=== PATIENT | male | born 1965 | race African-American/Black ===

== ENCOUNTER 2017-01-08 10:02 | Outpatient (CLI) ==
[2013-02-14 10:38] VITALS: TEMP 97.6
[2016-04-27 16:47] VITALS: BMI 28.2
--- NOTE | 2017-01-08 12:04 | MRI ---
EXAM: MRI lumbar spine without IV contrast. DATE: 01/08/2017. HISTORY: Low back pain. Lumbar radiculopathy. Bilateral lower extremity numbness and pain. S/P l umbar surgery in July 2016.. TECHNIQUE: Sagittal and axial T1W and T2W sequences of the lumbar spine along with sagittal IR and coronal T2W sequences were obtained using 1.2 Naa magnet. No IV contrast. COMPARISON: LS spine series 18 June 2016. MRI L-spine 28 October 2013. FINDINGS: There are four classic [id number] lumbar vertebra (L1 through L4). Pseudoarticulati on of the right L5 transverse process with the right S1 sacral ala is consistent with partial sacral ization of L5. There is no lumbar scoliosis. No acute lumbar fracture, subluxation, osseous malignancy, or pars in terarticularis defect is identified. Lumbar vertebra are normal in height. Bone marrow signal is o verall normal. A T2W/T1W bright, 10.4 mm focus in the left pedicle/body of L1 is consistent with a benign hemangioma. Mild Modic type 2 degenerate endplate changes, prominent anterolateral osteophyt es, disc desiccation, and moderate disc space narrowing are present at L3-4. Large osteophytes, min or degenerative endplate changes, disc desiccation and marked disc space narrowing are demonstrated at L4-5. There is minor disc desiccation and mild disc space narrowing at L5-S1. No sacral fractur e or stress reaction is apparent. Minor bilateral SI joint arthritis is evident. Conus medullaris terminates at T12. Visible spinal cord is normal. No retroperitoneal lymphadenopathy, paraspinal mass, or aortic aneurysm is detected. Paraspinal mus culature is symmetric bilaterally. Visible portions of the liver, spleen, adrenal glands and kidney s are limited by breathing motion artifacts, but reveal no distinct abnormality. Segmental analysis: T11-12: Normal. T12-L1: Normal. L1-2: Minimal posterior to right foraminal disc bulge and minor facet arthropathy cause minor right foraminal narrowing. No central canal stenosis. L2-3: Small concentric disc bulge, moderate right facet arthropathy, mild left facet arthropathy, m oderate ligamentum flavum hypertrophy and dorsal epidural fat cause marked central canal stenosis, m ild right foraminal stenosis, and mild/moderate left foraminal stenosis. Each L2 nerve root contact s the disc bulge near the lateral margin of the foramen. L3-4: Moderate concentric disc bulge, mild bilateral facet arthropathy, mild ligamentum flavum hype rtrophy and abundant dorsal epidural fat cause moderate/marked central canal stenosis, moderate righ t foraminal stenosis, and moderate left foraminal stenosis. Each L3 nerve root contacts the disc bu lge near the lateral margin of the foramen. L4-5: Right hemilaminectomy defect is noted. Moderate concentric disc bulge, superimposed midline to right paracentral disc protrusion (6.6 mm AP x 15 mm transverse), superimposed midline disc extru sindy (5 mm AP x 7 mm transverse x 6 mm behind the L5 superior endplate mild right facet arthropathy, moderate left facet arthropathy, and moderate ligamentum flavum hypertrophy cause severe central ca nal stenosis, marked right foraminal stenosis, and moderate left foraminal stenosis. Each L4 nerve r oot contacts the disc bulge lateral to the foramen. The disc protrusion posteriorly displaces / com presses the right S1 nerve root against the lateral recess wall. L5-S1: Small concentric disc bulge, moderate bilateral facet arthropathy, and mild ligamentum flavu m hypertrophy cause moderate central canal stenosis and mild narrowing at the opening to each forame n. IMPRESSIONS: 1. Lumbar spine moderate spondylosis, mild/moderate facet arthropathy, and multilevel DDD - - overa ll worse at several levels compared to October 2013. 2. L4-5 right hemilaminectomy. Recurrent disc protrusion compressing the right S1 nerve root and c ompressing nerve in the thecal sac is likely etiology for pain/radiculopathy. 3. Multilevel central canal stenoses (L2-3: Marked. L3-4: Moderate/marked. L4-5: Severe. L5-S1: Moderate). 4. Multilevel foraminal stenoses. Bilateral L2, L3, and L4 nerve roots contact disc bulges near th e foramen, and may be sources for pain/radiculopathy. 5. Benign hemangioma in the L1 body. 6. Mild bilateral SI joint arthritis.
== END 2017-01-08 10:03 | disposition home or self-care (01) ==
LOC: RAD 10:02
PROVIDERS: ATTEND Family Medicine
DX: M54.16 Radiculopathy, lumbar region (principal); M54.5 Low back pain

== ENCOUNTER 2018-01-10 08:19 | Outpatient (CLI) ==
[2013-02-14 10:38] VITALS: TEMP 97.6
[2016-04-27 16:47] VITALS: BMI 28.2
--- NOTE | 2018-01-10 10:19 | US ---
EXAM: Ultrasound abdomen limited. HISTORY: Elevated liver enzymes. COMPARISON: None available. TECHNIQUE: Abdominal, real time with image documentation: limited (eg, single organ, quadrant, foll ow-up) FINDINGS: The liver demonstrates homogeneous echotexture without intrahepatic biliary dilatation. P ortal venous flow is normal in direction. The gallbladder is without shadowing stones, wall thickeni ng or pericholecystic fluid. Common duct measures approximately 0.6 cm. Visualized portions of the pancreas are unremarkable. IMPRESSION: No sonographic abnormality of the liver, gallbladder or biliary system.
== END 2018-01-10 08:20 | disposition home or self-care (01) ==
LOC: RAD 08:19
PROVIDERS: ATTEND Family Medicine
DX: R74.8 Abnormal levels of other serum enzymes (principal)